=== PATIENT | female | born 1945 | race Caucasian/White ===

== ENCOUNTER 2022-07-12 21:44 | Emergency (ER) | payer OTHER ==
[~2022-07-12] VITALS: Ht 162.6 cm; Wt 59.1 kg
[~2022-07-12 21:44] MED LIST: ALPR0.25 PO; ASPI81CH43 GT; DIG0125T PO; MET50T PO; OMEP20CA74 PO; TRIA50TA2 PO
[2022-07-12 22:32] LABS: Basophils # (auto) 0.1 10 ^3/uL (0-0.2); Basophils % (auto) 0.8 % (0.0-2.0); Eosinophils # (auto) 0.1 10 ^3/uL (0-0.8); Eosinophils % (auto) 1.1 % (0.0-7.0); Hematocrit 39.4 % (36.0-46.0); Hemoglobin 13.8 g/dL (12.2-16.2); Lymphocytes # (auto) 2.9 10 ^3/uL (0.4-5.4); Lymphocytes % (auto) 39.1 % (10.0-50.0); Mean Corpuscular Hemoglobin 30.1 pg (28.0-32.0); Mean Corpuscular Volume 86.1 fL (80.0-100.0); Monocytes # (auto) 1.2 10 ^3/uL (0-1.3); Monocytes % (auto) 16.8 % (0.0-12.0); Neutrophils # (auto) 3.1 10 ^3/uL (1.6-8.6); Neutrophils % (auto) 42.2 % (37.0-80.0); Red Blood Cells 4.58 10^6/uL (4.0-5.20); Red Cell Distribution Width 13.4 % (11.8-14.3); White Blood Cell 7.3 10^3/uL (4.4-10.8)
[2022-07-12 22:57] LABS: Acetaminophen < 2.0 ug/mL (10-30); Alanine Aminotransferase 25 U/L (13-56); Albumin 3.4 g/dL (3.4-5.0); Anion Gap 9 (5-15); Aspartate Aminotransferase 23 U/L (15-37); BUN/Creatinine Ratio 14.1 (10.0-20.0); Blood Urea Nitrogen 14 mg/dL (7-18); Calcium 8.9 mg/dL (8.5-10.1); Carbon Dioxide 27 mmol/L (21-32); Chloride 104 mmol/L (98-107); GFR African American 70 mL/min; GFR Non-African American 58 mL/min; Glucose 135 mg/dL (74-106); Salicylate < 1.7 mg/dL (2.8-20.0); Sodium 140 mmol/L (136-145)
[2022-07-12 22:59] LABS: Alkaline Phosphatase 69 U/L (45-117); Bilirubin, Total 0.5 mg/dL (0.2-1.0); Total Protein 6.8 g/dL (6.4-8.2)
[2022-07-12 23:06] LABS: Blood Alcohol < 3.0 mg/dL (0-5)
[2022-07-12 23:09] LABS: Potassium 2.9 mmol/L (3.5-5.1)
[2022-07-12] MEDS: POTASSIUM CHL 20 Meq TABLET PO ONE ×2 (23:30→23:37)
[2022-07-12] MEDS ORDERED: POTASSIUM CHL 20MEQ/100ML 100 ML IV ONE (23:45)
[2022-07-13] MEDS ORDERED: POTASSIUM CHL 20 Meq TABLET PO ONE (06:30)
[2022-07-13] MEDS ORDERED: MAGNESIUM SULFATE 1GM/100ML 100 ML IV ONE (06:30)
[2022-07-13 07:43] LABS: BUN/Creatinine Ratio 14.5 (10.0-20.0); Calcium 8.7 mg/dL (8.5-10.1); Potassium 3.2 mmol/L (3.5-5.1)
[2022-07-13 09:18] LABS: Urine Bacteria NONE SEEN /hpf (None Seen); Urine Blood Negative /uL (Negative); Urine Specific Gravity 1.007 (1.001-1.035); Urine WBC 1 /hpf (0 - 5)
[2022-07-13 14:19] LABS: Alcohol, Urine < 3.0 mg/dL (0-10); Barbiturate Scree,Urine NEGATIVE (NEGATIVE); Benzodiazephine Screen, Urine POSITIVE (NEGATIVE); Cocaine Screen, Urine NEGATIVE (NEGATIVE); Opiate Scree,Urine NEGATIVE (NEGATIVE)
[2022-07-13 14:26] LABS: Amphetamine Screen, Urine NEGATIVE (NEGATIVE); Cannabinoid Screen, Urine POSITIVE (NEGATIVE); Phencyclidine Screen, Urine NEGATIVE (NEGATIVE)
[2022-07-14] MEDS ORDERED: POTASSIUM CHL 20 Meq TABLET PO ONE (07:00)
[2022-07-14 08:02] LABS: Albumin 3.5 g/dL (3.4-5.0); Calcium 8.9 mg/dL (8.5-10.1); Potassium 4.2 mmol/L (3.5-5.1)
[2022-07-14 08:06] LABS: BUN/Creatinine Ratio 14.1 (10.0-20.0); Bilirubin, Total 0.7 mg/dL (0.2-1.0); Total Protein 6.8 g/dL (6.4-8.2)
[2022-07-14 09:20] VITALS: BP 132/61
== END 2022-07-14 13:12 | disposition left against medical advice (07) ==
LOC: EDBD 21:44 → ER 21:44
DX: T42.4X2A Poisoning by benzodiazepines, intentional self-harm, initial encounter (principal); R07.89 Other chest pain; R45.851 Suicidal ideations; I48.91 Unspecified atrial fibrillation; J44.9 Chronic obstructive pulmonary disease, unspecified; K21.9 Gastro-esophageal reflux disease without esophagitis; E78.5 Hyperlipidemia, unspecified; Z87.891 Personal history of nicotine dependence; Z90.89 Acquired absence of other organs; Z90.710 Acquired absence of both cervix and uterus; Y92.89 Other specified places as the place of occurrence of the external cause
CPT/HCPCS: 36415; 70450; 71045; 80048; 80053; 80307; 80320; 80329; 81001; 83735; 85025; 93005; 96365; 96366; 96367; 99285; J3480

== ENCOUNTER 2024-07-28 11:14 | Inpatient (IN) | payer OTHER ==
[~2024-07-28] VITALS: Ht 170.2 cm; Wt 68.1 kg
[~2024-07-28 11:14] MED LIST changes: -TRIA50TA2 PO; +TRIA75TA11 PO
--- NOTE | 2024-07-28 11:21 | ED.PDOC ---
History of Present Illness HPI Comments 79-year-old female brought in by EMS presents with a chief complaint of flank pain/muscle pain x 4 days ago s/p fall. Patient states that she had a mechanical fall in her shower and injured the left flank/ribcage area. Patient reports that she went to urgent care, but was referred to the ER. Patient rates her pain a 10/10 and is tender to palpation. Time Seen by MD: 11:13 Reviewed Notes: Medications, Allergies Allergies: Coded Allergies: Codeine (Verified Allergy, Severe, 10/10/13) Statins (Verified Allergy, Severe, 10/10/13) Home Meds Reported Medications Aspirin (Asa) 81 Mg Ch, 81 MG GT 10/10/13 Hydrochlorothiazide W/Triamter (Hctz/Triamterene) 1 Tab Tab, 1 TAB PO, TAB 10/10/13 Omeprazole (PRILOSEC) 20 Mg Cap, 1 CAP PO DAILY, #90 CAP 1 Refill 10/10/13 Alprazolam (Xanax) 0.25 Mg Tb, 1 TAB PO DAILY, #30 TAB 10/10/13 Digoxin (LANOXIN TABLET) 0.125 Mg Tb, 1 TAB PO DAILY, #90 TAB 1 Refill 10/10/13 Metoprolol Tartrate (LOPRESSOR TABLET) 50 Mg Tb, 50 TAB PO BID, #60 TAB 5 Refills 10/10/13 Information Source: Patient, Emergency Med Personnel Mode of Arrival: EMS Severity: Moderate Timing: Days Duration: Since onset Prehospital treatment: None Past Medical History PAST MEDICAL HISTORY: AFIB, COPD, GERD, High Lipids, HTN Surgical History: Appendectomy, Cholecystectomy, Hysterectomy, Tonsillectomy 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 History Family History Family History: Unobtainable Social History Smoker: Quit Greater Than 1 Year Alcohol: Occasionally Drugs: Denies Drug Use Lives In: Home Constitutional: denies: chills, diaphoresis, fatigue, fever, malaise, sweats, weakness, others EENTM: denies: blurred vision, double vision, ear bleeding, ear discharge, ear drainage, ear pain, ear ringing, eye pain, eye redness, hearing loss, mouth pain, mouth swelling, nasal discharge, nose bleeding, nose congestion, nose pain, photophobia, tearing, throat pain, throat swelling, voice changes, others Respiratory: denies: cough, hemoptysis, orthopnea, SOB at rest, shortness of breath, SOB with excertion, stridor, wheezing, others Cardiovascular: denies: chest pain, dizzy spells, diaphoresis, Dyspnea on exertion, edema, irregular heart beat, left arm pain, lightheadedness, palpitations, PND, syncope, others Gastrointestinal: denies: abdomen distended, abdominal pain, blood streaked bowels, constipated, diarrhea, dysphagia, difficulty swallowing, hematemesis, melena, nausea, poor appetite, poor fluid intake, rectal bleeding, rectal pain, vomiting, others Genitourinary: reports: flank pain; denies: abnormal vagina bleeding, burning, dyspareunia, dysuria, frequency, hematuria, incontinence, pain, , vagina discharge, urgency, others Neurological: denies: dizziness, fainting, headache, left sided numbness, left sided weakness, numbness, paresthesia, pre-existing deficit, right sided numbness, right sided weakness, seizure, speech problems, tingling, tremors, weakness, others Musculoskeletal: reports: muscle pain; denies: back pain, gout, joint pain, joint swelling, muscle stiffness, neck pain, others Integumetry: denies: bruises, change in color, change in hair/nails, dryness, laceration, lesions, lumps, rash, wounds, others Allergic/Immunocompromised: denies: Difficulty Healing, Frequent Infections, Hives, Itching, others Hematologic/Lymphatic: denies: anemia, blood clots, easy bleeding, easy bruising, swollen glands, others Endocrine: denies: excessive hunger, excessive sweating, excessive thirst, excessive urination, flushing, intolerance to cold, intolerance to heat, unexplained weight gain, unexplained weight loss, others Psychiatric: denies: anxiety, bipolar disorder, depression, hopeless, panic disorder, schizophrenia, sleepless, suicidal, others All Other Systems: Reviewed and Negative Physical Exam General Appearance: Moderate Distress HEENT: Normal ENT Inspection, Pharynx Normal, TMs Normal Neck: Full Range of Motion, Non-Tender, Normal, Normal Inspection Respiratory: Lungs Clear, No Accessory Muscle Use, No Respiratory Distress, Normal Breath Sounds, Other (Tenderness to the left chest lab rib area) Cardiovascular: No Edema, No JVD, No Murmur, No Gallop, Normal Peripheral Pulses, Regular Rate/Rhythm Breast Exam: Deferred Gastrointestinal: No Organomegaly, Non Tender, No Pulsatile Mass, Normal Bowel Sounds, Soft Genitalia: Deferred Pelvic: Deferred Rectal: Deferred Extremities: No calf tenderness, Normal capillary refill, Normal inspection, Normal range of motion, Non-tender, No pedal edema Musculoskeletal : Apperance: Normal Neurologic: Alert, refrigeration engine operator II-XII nml as Tested, No Motor Deficits, Normal Affect, Normal Mood, No Sensory Deficits Cerebellar Function: Normal Reflexes: Normal Skin: Dry, Normal Color, Warm Lymphatic: No Adenopathy Was a procedure done? Was a procedure done?: No Differential Dx Considerations may include: Rib fractures, intra-abdominal injury, pneumonia, pleural effusion X-Ray, Labs, Meds, VS Vital Signs Date Time Temp Pulse Resp B/P (MAP) Pulse Ox O2 Delivery O2 Flow Rate FiO2 07/28/24 14:14 79 16 154/69 (97) 96 07/28/24 12:34 82 18 157/82 07/28/24 12:07 98.4 82 18 157/82 (107) 94 98.4 07/28/24 12:07 82 18 96 Room Air* 0 21 07/28/24 12:04 82 18 157/82 07/28/24 11:16 98.2 85 18 159/76 (103) 95 98.2 Lab Test 07/28/24 12:02 07/28/24 11:41 Range/Units Urine Color Light-yellow Yellow Urine Clarity Clear Clear Urine pH 6.5 5.0-9.0 Urine Specific [place] 1.010 1.001-1.035 Urine Protein Negative Negative Urine Ketones Negative Negative Urine Blood 1+ H Negative /uL Urine Nitrite Negative Negative Urine Bilirubin Negative Negative Urine Urobilinogen Normal Negative mg/dL Urine Leukocyte Esterase 1+ Negative /uL Urine RBC 5 0 - 4 /hpf Urine Microscopic WBC 1 0-5 /HPF Urine Squamous Epithelial Cells Few <5 /hpf Urine Bacteria None seen None Seen /hpf Urine Glucose Normal Normal mg/dL White Blood Count 7.9 4.4-10.8 10^3/uL Red Blood Count 4.91 4.0-5.20 10^6/uL Hemoglobin 14.7 12.2-16.2 g/dL Hematocrit 42.1 36.0-46.0 % Mean Corpuscular Volume 85.8 80.0-100.0 fL Mean Corpuscular Hemoglobin 29.9 28.0-32.0 pg Mean Corpuscular Hemoglobin Concent 34.8 32.0-36.0 g/dL Red Cell Distribution Width 13.3 11.8-14.3 % Platelet Count 195 140-450 10^3/uL Mean Platelet Volume 8.8 6.9-10.8 fL Neutrophils (%) (Auto) 56.7 37.0-80.0 % Lymphocytes (%) (Auto) 29.1 10.0-50.0 % Monocytes (%) (Auto) 12.3 H 0.0-12.0 % Eosinophils (%) (Auto) 1.2 0.0-7.0 % Basophils (%) (Auto) 0.7 0.0-2.0 % Neutrophils # (Auto) 4.5 1.6-8.6 10 ^3/uL Lymphocytes # (Auto) 2.3 0.4-5.4 10 ^3/uL Monocytes # (Auto) 1.0 0-1.3 10 ^3/uL Eosinophils # (Auto) 0.1 0-0.8 10 ^3/uL Basophils # (Auto) 0.1 0-0.2 10 ^3/uL Nucleated Red Blood Cells 0.1 % Sodium Level 145 136-145 mmol/L Potassium Level 4.2 3.5-5.1 mmol/L Chloride Level 109 H 98-107 mmol/L Carbon Dioxide Level 30 20-31 mmol/L Anion Gap 6 5-15 Blood Urea Nitrogen 11 9-23 mg/dL Creatinine 0.88 0.550-1.02 mg/dL Glomerular Filtration Rate Calc 67 >90 mL/min BUN/Creatinine Ratio 12.5 10.0-20.0 Serum Glucose 152 H 74-106 mg/dL Calcium Level 10.0 8.7-10.4 mg/dL Current Medications Medications (Trade) Dose Ordered Sig/Francis Route Start Time Stop Time Status Last Admin Ondansetron HCl (Zofran) 4 mg ONCE ONCE IV 07/28/24 11:30 07/28/24 11:31 DC 07/28/24 12:04 Morphine Sulfate 4 mg ONCE ONCE IV 07/28/24 11:30 07/28/24 11:31 DC 07/28/24 12:04 X-ray of the left ribs shows 11th and 10th displaced rib fractures A CAT scan of the abdomen and pelvis was done with IV contrast and shows: IMPRESSION: 1. Left lower lobe infiltrate.No acute 2. Pathology in the abdomen or pelvis. Fecal loading is present in the colon. At this time the patient was given morphine 4 mg IV push for the pain The patient was given Zofran 4 mg IV push for the nausea At this time the CBC is within normal limits The chemistry panel is within normal limits do allow the urine test is positive for UTI The patient has been given Rocephin 1 g IV piggyback The patient has been admitted secondary to the fact that she already has a left pleural effusion Images Reviewed?: Images reviewed and evaluated by me Time of 1ST Reevaluation: 11:43 Reevaluation 1ST: Unchanged Patient Education/Counseling: Diagnosis, Treatment, Prognosis Family Education/Counseling: No Family Present Departure 1 Departure Time of Disposition: 14:40 Impression: Primary Impression: Multiple rib fractures Qualified Codes: S22.42XA - Multiple fractures of ribs, left side, initial encounter for closed fracture Additional Impression: Pleural effusion, left Disposition: 09 ADMITTED INPATIENT Admit to: Med Surg Condition: Fair Critical Care Note Critical Care Time?: No Stability Stability form required: Yes Unstable for transfer: ED Physician Assesment (Clinical assesment) Heart Score Heart Score: Heart Score Response (Comments) Value History N/A 0 EKG N/A 0 Age N/A 0 Risk Factors N/A 0 Troponin N/A 0 Total 0 I personally scribed for ANNA ZAMBRANO MD ([email or web address]) on 07/28/24 at 11:21. Electronically submitted by Juan Solis ([email or web address]). ANNA ZAMBRANO MD Jul 28, 2024 11:21
[2024-07-28 11:57] LABS: Basophils # (auto) 0.1 10 ^3/uL (0-0.2); Basophils % (auto) 0.7 % (0.0-2.0); Eosinophils # (auto) 0.1 10 ^3/uL (0-0.8); Eosinophils % (auto) 1.2 % (0.0-7.0); Hematocrit 42.1 % (36.0-46.0); Hemoglobin 14.7 g/dL (12.2-16.2); Lymphocytes # (auto) 2.3 10 ^3/uL (0.4-5.4); Lymphocytes % (auto) 29.1 % (10.0-50.0); Mean Corpuscular Hemoglobin 29.9 pg (28.0-32.0); Mean Corpuscular Hgb Conc. 34.8 g/dL (32.0-36.0); Mean Corpuscular Volume 85.8 fL (80.0-100.0); Monocytes % (auto) 12.3 % (0.0-12.0); Neutrophils # (auto) 4.5 10 ^3/uL (1.6-8.6); Neutrophils % (auto) 56.7 % (37.0-80.0); Nucleated Red Blood Cells % 0.1 %; Platelet Count (auto) 195 10^3/uL (140-450); Red Blood Cells 4.91 10^6/uL (4.0-5.20); Red Cell Distribution Width 13.3 % (11.8-14.3); White Blood Cell 7.9 10^3/uL (4.4-10.8)
[2024-07-28 12:04] LABS: Urine Bacteria None Seen /hpf (None Seen)
[2024-07-28] MEDS: MORPHINE SULFATE 4 MG/ML SYR/VIAL IV ONE (12:04)
[2024-07-28] MEDS: ONDANSETRON HCL 4 MG/2 ML VIAL IV ONE (12:04)
[2024-07-28 12:06] LABS: Potassium 4.2 mmol/L (3.5-5.1); Sodium 145 mmol/L (136-145)
[2024-07-28 12:07] VITALS: PULSE 82; RESP 18; O2SAT 96
[2024-07-28 12:07] LABS: Anion Gap 6 (5-15); Carbon Dioxide 30 mmol/L (20-31)
[2024-07-28 12:10] LABS: Chloride 109 mmol/L (98-107)
[2024-07-28 12:12] LABS: BUN/Creatinine Ratio 12.5 (10.0-20.0); Blood Urea Nitrogen 11 mg/dL (9-23)
[2024-07-28 12:14] LABS: Glucose 152 mg/dL (74-106)
[2024-07-28 12:29] LABS: Urine Blood 1+ /uL (Negative); Urine Clarity Clear (Clear); Urine Color Light-Yellow (Yellow); Urine Protein, UAD Negative (Negative); Urine Squamous Epithelial Cell FEW /hpf (<5); Urine Urobilinogen Normal (Negative); Urine WBC 1 /HPF (0-5); Urine pH 6.5 (5.0-9.0)
[2024-07-28] MEDS: IOHEXOL 300 MG/ML 100ML BOTTLE IJ ONE (12:37)
--- NOTE | 2024-07-28 13:36 | DVH ---
CT abdomen and pelvis with IV contrast INDICATION: pain TECHNIQUE: Serial axial images were performed through the abdomen and pelvis and then reformatted in the sagittal and coronal plane. All CT scans at this medical facility are performed using dose modula tion techniques as appropriate to a performed exam including the following: Automated exposure contro l was utilized; adjustment of the MA and/or KvP according to patient size; and use of iterative recon struction technique. FINDINGS: Infiltrate at the left lung base. Liver and spleen are normal in size without focal mass. No renal stones or hydronephrosis. Small right renal cyst. No masses or enlargement of the adrenal glands or pancreas. No biliary dilatation. Gallbladder not seen. No distention of bowel loops to suggest mechanical obstruction of bowel. The appendix is normal in ap pearance. No free fluid. Within the pelvis, bladder is smooth walled without stones. No abnormal masses or fluid collections. Surgical changes in the lower lumbar spine and right hip joint IMPRESSION: 1. Left lower lobe infiltrate.No acute 2. Pathology in the abdomen or pelvis. Fecal loading is present in the colon. Computed Tomographic Radiation Dosimetry Report: Total CTDI vol = 12.42mGy Total DLP = 674.87mGy-cm L ow dose protocols were performed.
--- NOTE | 2024-07-28 13:52 | DVH ---
EXAMINATION: XY L RIB X RAY INDICATION: Trauma COMPARISON: None TECHNIQUE: Frontal view of the chest and 2 views of the left ribs history FINDINGS: Small left pleural effusion Normal cardiomediastinal silhouette. Displaced fractures of the 11th and 10th ribs are visualized. IMPRESSION: Displaced fractures of the left 11th and 10th ribs. Small left pleural effusion.
[2024-07-28] MEDS ORDERED: DOCUSATE SOD 100 MG CAP PO PRN (15:00)
[2024-07-28] MEDS ORDERED: ONDANSETRON HCL 4 MG/2 ML VIAL IV PRN (15:00)
[2024-07-28] MEDS ORDERED: ALPRAZolam 0.25 MG TAB PO PRN (15:00)
[2024-07-28] MEDS ORDERED: ACETAMINOPHEN 325 MG TAB PO PRN (15:00)
[2024-07-28] MEDS ORDERED: IBUPROFEN 600 MG TAB PO PRN (15:30)
[2024-07-28] MEDS ORDERED: NITROGLYCERIN 0.4 MG SL TAB SL PRN (15:30)
--- NOTE | 2024-07-28 15:31 | DVHHP2 ---
History of Present Illness Reason for Visit: Multiple rib fractures History of Present Illness The patient is a 79-year-old female with past medical history of AFib, COPD, GERD, hyperlipidemia, and hypertension who presented to [facility] ED with complaint of flank/muscle pain for the past 4 days. Patient reports she had a mechanical fall at home in her shower 3 days ago with with sustained injury to the left flank and ribcage. Patient went to urgent care today for medical treatment but was referred to the ER for further evaluation, rating pain 10/10 numeric scale. Patient was seen and evaluated in the ED, laboratory data shows WBC 7.9, platelets 195, sodium 145, potassium 4.2, BUN 11, creatinine 0.88, glucose 152, blood pressure 154/69, heart rate 82, temperature 98.4 F, O2 saturation 97% on room air. Urinalysis positive for urinary tract infection. Abdomen/pelvis CT revealing left lower lobe infiltrate, pathologic in the abdomen or pelvis, fecal loading is present in the colon. Ribs x-ray revealing displaced fractures of the left 10th and 11th ribs, small left pleural effusion. Patient was given IV morphine sulfate 4 mg x 1, please see medication orders section in the computer. On my assessment, my assessment, by her side, patient denied chest pain, no headache, no dizziness, no blurry vision, no palpitation, no shortness of breath, no diarrhea, no nausea, no vomiting, no fever, no chills. Patient was admitted for further evaluation and medical management. Past Medical History AFIB, COPD, GERD, High Lipids, HTN Past Surgical History Appendectomy, Cholecystectomy, Hysterectomy, Tonsillectomy Family History Reviewed, noncontributory to the management of this case. Past Social History The patient lives at home, quit smoking cigarettes greater than 1 year, drinks alcohol occasionally, denies illicit drugs abuse. Review of Systems Constitutional: No: Fever, Chills, Sweats, Weakness, Malaise, Other Eyes: No: Pain, Vision change, Conjunctivae inflammation, Eyelid inflammation, Other, Redness ENT: No: Ear pain, Ear discharge, Nose pain, Nose discharge, Nose congestion, Mouth pain, Mouth swelling, Throat pain, Throat swelling, Other Respiratory: No: Cough, Dry, Shortness of breath, SOB with excertion, Wheezing, Hemoptysis, Pleuritic Pain, Sputum, Wheezing, Other Cardiovascular: No: Chest Pain, Palpitations, Orthopnea, Paroxysmal Noc. Dyspnea, Edema, Lt Headedness, Other Gastrointestinal: No: Nausea, Vomiting, Abdominal Pain, Diarrhea, Constipation, Melena, Hematochezia, Other Genitourinary: No Dysuria, No Frequency, No Incontinence, No Hematuria, No Retention; Other (Bilateral flank pain) Musculoskeletal: other (Muscle pain, ribs fracture); No: neck pain, shoulder pain, arm pain, back pain, hand pain, leg pain, foot pain Skin: No: Rash, Lesions, Jaundice, Bruising, Other Neurological: No: Weakness, Numbness, Incoordination, Change in speech, Confusion, Seizures, Other Allergies: Coded Allergies: Codeine (Verified Allergy, Severe, 10/10/13) Statins (Verified Allergy, Severe, 10/10/13) Medications Current Medications Medications Dose Ordered Sig/Francis Route Start Time Stop Time Status Last Admin Dose Admin Famotidine 20 mg DAILY IV 07/29/24 10:00 Alprazolam 0.25 mg Q8HP PRN PO 07/28/24 15:00 Aspirin 81 mg DAILY PO 07/29/24 10:00 Metoprolol Tartrate 25 mg BID PO 07/28/24 15:20 Digoxin 0.125 mg DAILY PO 07/29/24 10:00 Sodium Chloride 10 ml Q8HR IV 07/28/24 22:00 Ondansetron HCl 4 mg Q4HP PRN IV 07/28/24 15:00 Docusate Sodium 100 mg BIDPRN PRN PO 07/28/24 15:00 Acetaminophen 650 mg Q6HP PRN PO 07/28/24 15:00 Exam Vital Signs Vital Signs Date Time Temp Pulse Resp B/P (MAP) Pulse Ox O2 Delivery O2 Flow Rate FiO2 07/28/24 14:14 79 16 154/69 (97) 96 07/28/24 12:07 98.4 98.4 07/28/24 12:07 Room Air* 0 21 General Appearance: Alert, Oriented X3, Cooperative, No acute distress HEENT: Atraumatic, PERRLA, EOMI, Mucous membr. moist/pink Respiratory: Clear to auscultation, Normal air movement Cardiovascular: Regular rate, Normal S1, Normal S2, No murmurs Abdominal: Normal bowel sounds, Soft, No tenderness, No hepatospenomegaly, No masses Extremities: No clubbing, No cyanosis, No edema, Normal pulses, Other (Flank tenderness) Skin: No rashes, No breakdown, No significant lesion Neuro: Normal speech, Normal tone, Sensation intact, Cranial nerves 3-12 NL, Reflexes 2+, Other (Unsteady gait) Psych/Mental Status: Mental status NL, Mood NL Labs/Xrays Labs Test 07/28/24 12:02 07/28/24 11:41 Range/Units Urine Color Light-yellow Yellow Urine Clarity Clear Clear Urine pH 6.5 5.0-9.0 Urine Specific [place] 1.010 1.001-1.035 Urine Protein Negative Negative Urine Ketones Negative Negative Urine Blood 1+ H Negative /uL Urine Nitrite Negative Negative Urine Bilirubin Negative Negative Urine Urobilinogen Normal Negative mg/dL Urine Leukocyte Esterase 1+ Negative /uL Urine RBC 5 0 - 4 /hpf Urine Microscopic WBC 1 0-5 /HPF Urine Squamous Epithelial Cells Few <5 /hpf Urine Bacteria None seen None Seen /hpf Urine Glucose Normal Normal mg/dL White Blood Count 7.9 4.4-10.8 10^3/uL Red Blood Count 4.91 4.0-5.20 10^6/uL Hemoglobin 14.7 12.2-16.2 g/dL Hematocrit 42.1 36.0-46.0 % Mean Corpuscular Volume 85.8 80.0-100.0 fL Mean Corpuscular Hemoglobin 29.9 28.0-32.0 pg Mean Corpuscular Hemoglobin Concent 34.8 32.0-36.0 g/dL Red Cell Distribution Width 13.3 11.8-14.3 % Platelet Count 195 140-450 10^3/uL Mean Platelet Volume 8.8 6.9-10.8 fL Neutrophils (%) (Auto) 56.7 37.0-80.0 % Lymphocytes (%) (Auto) 29.1 10.0-50.0 % Monocytes (%) (Auto) 12.3 H 0.0-12.0 % Eosinophils (%) (Auto) 1.2 0.0-7.0 % Basophils (%) (Auto) 0.7 0.0-2.0 % Neutrophils # (Auto) 4.5 1.6-8.6 10 ^3/uL Lymphocytes # (Auto) 2.3 0.4-5.4 10 ^3/uL Monocytes # (Auto) 1.0 0-1.3 10 ^3/uL Eosinophils # (Auto) 0.1 0-0.8 10 ^3/uL Basophils # (Auto) 0.1 0-0.2 10 ^3/uL Nucleated Red Blood Cells 0.1 % Sodium Level 145 136-145 mmol/L Potassium Level 4.2 3.5-5.1 mmol/L Chloride Level 109 H 98-107 mmol/L Carbon Dioxide Level 30 20-31 mmol/L Anion Gap 6 5-15 Blood Urea Nitrogen 11 9-23 mg/dL Creatinine 0.88 0.550-1.02 mg/dL Glomerular Filtration Rate Calc 67 >90 mL/min BUN/Creatinine Ratio 12.5 10.0-20.0 Serum Glucose 152 H 74-106 mg/dL Calcium Level 10.0 8.7-10.4 mg/dL PATIENT: MARY WAKEFIELD ACCT: [id number] UNIT: [id number] : 1945 LOC: ER ROOM / BED: / AGE / SEX: 79 / F ADM STATUS: REG ER SERVICE [id number] ORDERING PHYSICIAN: ANNA ZAMBRANO MD PROCEDURE(s): ABPLIV - CT AB PEL WITH IV CON ONLY REASON: pain ORDER NUMBER(s): [id number], ACCESSION NUMBER(s): [id number] CT abdomen and pelvis with IV contrast INDICATION: pain TECHNIQUE: Serial axial images were performed through the abdomen and pelvis and then reformatted in the sagittal and coronal plane. All CT scans at this medical facility are performed using dose modulation techniques as appropriate to a performed exam including the following: Automated exposure control was utilized; adjustment of the MA and/or KvP according to patient size; and use of iterative reconstruction technique. FINDINGS: Infiltrate at the left lung base. Liver and spleen are normal in size without focal mass. No renal stones or hydronephrosis. Small right renal cyst. No masses or enlargement of the adrenal glands or pancreas. No biliary dilatation. Gallbladder not seen. No distention of bowel loops to suggest mechanical obstruction of bowel. The appendix is normal in appearance. No free fluid. Within the pelvis, bladder is smooth walled without stones. No abnormal masses or fluid collections. Surgical changes in the lower lumbar spine and right hip joint IMPRESSION: 1. Left lower lobe infiltrate.No acute 2. Pathology in the abdomen or pelvis. Fecal loading is present in the colon. ORDERING PHYSICIAN: ANNA ZAMBRANO MD PROCEDURE(s): LRIBS - L RIB X RAY REASON: fall ORDER NUMBER(s): [id number], ACCESSION NUMBER(s): [id number] EXAMINATION: XY L RIB X RAY INDICATION: Trauma COMPARISON: None TECHNIQUE: Frontal view of the chest and 2 views of the left ribs history FINDINGS: Small left pleural effusion Normal cardiomediastinal silhouette. Displaced fractures of the 11th and 10th ribs are visualized. IMPRESSION: Displaced fractures of the left 11th and 10th ribs. Small left pleural effusion. Assessment/Plan Assessment/Plan Multiple rib fractures Pneumonia, unspecified organism Urinary tract infection Pleural effusion, left Multiple fractures of ribs, left side, initial encounter for closed fracture Plan 1. Admit to telemetry unit 2. Breathing treatment 3. Pain control management 4. IV antibiotic management 5. Management of fluids and electrolytes 6. Consultation for orthopedic 7. Diagnostic test abdomen/pelvis CT 8. DVT prophylaxis-on aspirin 9. Repeat labs CBC, CMP in a.m. 10. Home medication reviewed and reconciled 11. Continue with current medical management 12. Treatment plan discussed with patient/ and RN. Patient/ verbalized understanding. Plan discussed with: Patient, Spouse ( at bedside), Other (RN) My Orders Orders - FRANCE RAZA DNP Procedure Category Date Status Time Famotidine Injection PHA 07/29/24 In Process (Pepcid Injection) 10:00 Alprazolam Tablet PHA 07/28/24 In Process (Xanax Tablet) 15:00 Aspirin Tablet PHA 07/29/24 In Process 10:00 Metoprolol Tartrate PHA 07/28/24 In Process Tablet (Lopressor Ta 15:20 Digoxin Tablet PHA 07/29/24 In Process (Lanoxin Tablet) 10:00 Digoxin (Lanoxin) LAB 07/28/24 In Process 14:53 Allergies JUAN C 07/28/24 In Process 14:53 Code Status CODE 07/28/24 Transmitted 14:53 Sodium Chloride Lock PHA 07/28/24 In Process (Saline Lock Ns) 22:00 Oxygen Per Hour RT 07/28/24 Transmitted 14:53 Ondansetron Hcl PHA 07/28/24 In Process (Zofran) 15:00 Docusate Sodium PHA 07/28/24 In Process Capsule (Colace 15:00 Fall Risk Precautions JUAN C 07/28/[address] 14:53 Complete Blood Count LAB 07/29/24 Verified 04:00 Comprehensive LAB 07/29/24 Verified Metabolic Panel 04:00 Cardiac DIET 07/28/24 Transmitted Diet-2gna,Lofat,Lochol Dinner Condition: Serious JUAN C 07/28/24 In Process 14:53 Acetaminophen Tablet PHA 07/28/24 In Process (Tylenol Tablet) 15:00 Bedrest With Bathroom JUAN C 07/28/24 In Process Privileg 14:53 Sequential JUAN C 07/28/24 In Process Compression Device Azithromycin 500mg/ PHA 07/29/24 Verified 250ml (Zithromax 50 10:00 Azithromycin 500mg/ PHA 07/28/24 Verified 250ml (Zithromax 50 15:30 Admit ADMIT 07/28/24 Verified 15:28 Nitroglycerin PHA 07/28/24 Verified Sublingual (Ntrostat 15:30 Stat Ekg For Chest JUAN C 07/28/24 Verified Pain 15:28 Notify Md Of Changes JUAN C 07/28/24 Verified From Base 15:28 Problem List: (1) Multiple rib fractures (2) Pneumonia, unspecified organism (3) Urinary tract infection (4) Pleural effusion, left (5) Multiple fractures of ribs, left side, initial encounter for closed fracture Date of Service: Jul 28, 2024 Billing Provider: FRANCE RAZA DNP Common Visit Codes: [id number] INP/OBS CARE (HIGH) FRANCE RAZA DNP Jul 28, 2024 15:31
[2024-07-28] MEDS: METOPROLOL TARTRATE 25 MG TAB PO SCH (15:38)
[2024-07-28] MEDS: AZITHROMYCIN 500MG/ 250ML 250 ML IV ONE (15:39)
[2024-07-28 16:00] VITALS: BP 154/70; PULSE 66; RESP 14; TEMP 98.4; O2SAT 93
[2024-07-28] MEDS: cefTRIAXone 1GM/50ML D5W 50 ML IV ONE (16:45)
[2024-07-28] MEDS ORDERED: CHLO25TA2 PO (17:17)
[2024-07-28] MEDS ORDERED: FLUO10TA18 PO (17:17)
[2024-07-28] MEDS ORDERED: DULO1CAP6 PO (17:17)
[2024-07-28] MEDS ORDERED: ALLO100T PO (17:17)
[2024-07-28] MEDS ORDERED: COLC1CAP (17:17)
[2024-07-28] MEDS ORDERED: METO1TAB9 PO (17:17)
[2024-07-28] MEDS ORDERED: SODIUM CHLOR 0.9% PF (SALINE LOCK) 10ML VIAL/SYR IV SCH (22:00)
[2024-07-29] MEDS ORDERED: cefTRIAXone 1GM/50ML D5W 50 ML IV SCH (09:00)
[2024-07-29] MEDS ORDERED: DIGOXIN 0.125 MG TAB PO SCH (10:00)
[2024-07-29] MEDS ORDERED: AZITHROMYCIN 500MG/ 250ML 250 ML IV SCH (10:00)
[2024-07-29] MEDS ORDERED: FAMOTIDINE (10MG/ML) 2ML VL IV SCH (10:00)
[2024-07-29] MEDS ORDERED: ASPirin 81 mg TAB PO SCH (10:00)
== END 2024-07-28 19:02 | disposition left against medical advice (07) | DRG 194 ==
LOC: EDBD 11:14 → ER 11:14 → OVERFLOW 15:28
PROVIDERS: ADMIT Nurse Practitioner Family; ATTEND Nurse Practitioner Family
DX: J18.9 Pneumonia, unspecified organism (principal); J44.0 Chronic obstructive pulmonary disease with (acute) lower respiratory infection; S22.42XA Multiple fractures of ribs, left side, initial encounter for closed fracture; N39.0 Urinary tract infection, site not specified; J90 Pleural effusion, not elsewhere classified; Z53.29 Procedure and treatment not carried out because of patient's decision for other reasons; I10 Essential (primary) hypertension; I48.91 Unspecified atrial fibrillation; K21.9 Gastro-esophageal reflux disease without esophagitis; E78.5 Hyperlipidemia, unspecified; W18.2XXA Fall in (into) shower or empty bathtub, initial encounter; Z88.5 Allergy status to narcotic agent; Z88.8 Allergy status to other drugs, medicaments and biological substances; Z79.82 Long term (current) use of aspirin; Z79.899 Other long term (current) drug therapy; Z90.710 Acquired absence of both cervix and uterus; Z90.49 Acquired absence of other specified parts of digestive tract; Z87.891 Personal history of nicotine dependence; Y99.8 Other external cause status; Y92.002 Bathroom of unspecified non-institutional (private) residence as the place of occurrence of the external cause; Y93.E1 Activity, personal bathing and showering
CPT/HCPCS: 36415; 71101; 74177; 80048; 80162; 81001; 85025; 87086; 96365; 96375; G0378; J2405